=== PATIENT | female | born 1965 | race African-American/Black ===

== ENCOUNTER 2016-05-15 19:44 | Emergency (ER) | payer BC ==
--- NOTE | 2016-05-15 20:11 | ER Document Report ---
HPI - HPI Patient complains to provider of: knee pain Pain Level: 5 Context: 51-year-old female presents emergency Department complaining of left knee pain. Patient states that she's had this pain for about 2 weeks and is over time. Patient states that this pain is worse with movement and is limited her ability to walk. She states she is able to bear weight and walk but with a limp. She feels like the knee is unstable and she is worried about falling sometimes. Patient states that she works for [employer] and she is a lot of pivot motions that are repetitive. Asked medical history significant for diabetes and heel spurs - REPRODUCTIVE Reproductive: DENIES: : - DERM Skin Color: Normal Past Medical History - Social History Smoking Status: Unknown if Ever Smoked Family History: Reviewed & Not Pertinent, Arthritis, CAD, CVA, DM, Hyperlipidemia, Hypertension, Malignancy, Thyroid Disfunction, Other - sarcoidosis - Past Medical History Cardiac Medical History: Reports: Hx Hypertension Pulmonary Medical History: Reports: Hx Asthma Denies: Hx Tuberculosis Endocrine Medical History: Reports: Hx Diabetes Mellitus Type 2 Renal/ Medical History: Denies: Hx Peritoneal Dialysis GI Medical History: Reports: Hx Gastroesophageal Reflux Disease Musculoskeltal Medical History: Reports Hx Arthritis, Reports Hx Musculoskeletal Deformity - carpal tunnel Psychiatric Medical History: Reports: Hx Depression Past Surgical History: Reports: Hx Breast Surgery - reduction, Hx Gynecologic Surgery - d anc c, Hx Hysterectomy - Partial 1996, Hx Oral Surgery - wisdom teeth extraction, Hx Orthopedic Surgery - loren. carpel tunnel surgery, Hx Tonsillectomy. Denies: Hx Pacemaker - Immunizations Immunizations up to date: Yes Hx Diphtheria, Pertussis, Tetanus Vaccination: Yes - past 10 years Hx Pneumococcal Vaccination: 11/17/11 Vertical Provider Document - CONSTITUTIONAL Agree With Documented VS: Yes Exam Limitations: No Limitations General Appearance: WD/WN, No Apparent Distress - INFECTION CONTROL TRAVEL OUTSIDE OF THE [place] IN LAST 30 DAYS: No - RESPIRATORY O2 Sat by Pulse Oximetry: 95 - CARDIOVASCULAR Pulses: Normal: Popliteal, Dorsalis pedis - MUSCULOSKELETAL/EXTREMETIES Musculoskeletal/Extremeties: Non-Tender, No Edema. negative: Eccymosis Notes: Negative posterior, anterior drawer, , valgus varus. Positive apleys with pain in medial aspect of the knee - NEURO Level of Consciousness: Awake, Alert Motor/Sensory: No Motor Deficit, No Sensory Deficit - DERM Integumentary: Warm, Dry, No Rash Course - Re-evaluation Re-evalutation: 05/15/16 20:55 Patient with evidence of internal knee injury. Discussed with patient complained follow-up with the fourth of for proper assessment and diagnosis. She is agreeable stable for discharge home - Vital Signs Vital signs: Temp Pulse Resp BP Pulse Ox 98.9 F 106 H 18 156/100 H 95 05/15/16 19:48 05/15/16 19:48 05/15/16 19:48 05/15/16 19:48 05/15/16 19:48 Discharge - Discharge Clinical Impression: Internal knee problem Condition: Good Disposition: HOME, SELF-CARE Instructions: Use of Crutches ([facility]), Ice & Elevation ([facility]), Suspected Internal Knee Injury ([facility]) Additional Instructions: Please use the crutches to your comfort level to help decrease the amount of pain you are in. Please be sure to follow up with Orthopedics for a knee evaluation Prescriptions: Naproxen 500 mg PO BID #20 tablet Forms: Return to Work Referrals: QUEENIE WINTERS MD [Primary Care Provider] - Follow up as needed SUZANNA GOFF MD [ACTIVE STAFF] - Follow up in 1 week
[2016-05-15] MEDS ORDERED: KETOROLAC TROMETHAMINE 60 MG/2 ML SDV IM ONE (20:34)
[2016-05-15 21:06] VITALS: BP 132/88
== END 2016-05-15 21:15 | disposition home or self-care (01) ==
LOC: ER 19:44
DX: M25.562 Pain in left knee (principal); E11.9 Type 2 diabetes mellitus without complications; I10 Essential (primary) hypertension; J45.909 Unspecified asthma, uncomplicated
CPT/HCPCS: 99283; 96372; J1885

== ENCOUNTER 2016-05-26 18:35 | Emergency (ER) | payer BC ==
[2016-05-26] MEDS ORDERED: IBUPROFEN 800 MG TABLET PO ONE (23:09)
--- NOTE | 2016-05-26 23:09 | ER Document Report ---
ED General - General Chief Complaint: Knee Injury Stated Complaint: LEFT LEG PAIN Notes: Patient is a 51-year-old female who presents with left knee pain has been present for the past 1 week. She came to emergency department as her symptoms have not been improving over this period of time. States that she was diagnosed with a likely ligamentous injury one week ago but has continued to have pain in the knee which she describes as a constant, dull, throbbing pain. Bearing weight worsens the pain. Nothing improves the pain. She has followed up with orthopedic surgery was recommended a knee brace and continue conservative management. She denies any focal weakness or numbness. No leg swelling. TRAVEL OUTSIDE OF THE [place] IN LAST 30 DAYS: No - Related Data Allergies/Adverse Reactions: cephalexin [From Keflex] Allergy (Verified 05/26/16 19:13) Past Medical History - General Information source: Patient - Social History Smoking Status: Never Smoker Frequency of alcohol use: None Drug Abuse: None Lives with: Spouse/Significant other Family History: Reviewed & Not Pertinent, Arthritis, CAD, CVA, DM, Hyperlipidemia, Hypertension, Malignancy, Thyroid Disfunction, Other - Past Medical History Cardiac Medical History: Reports: Hx Hypertension Pulmonary Medical History: Reports: Hx Asthma Denies: Hx Tuberculosis Endocrine Medical History: Reports: Hx Diabetes Mellitus Type 2 Renal/ Medical History: Denies: Hx Peritoneal Dialysis GI Medical History: Reports: Hx Gastroesophageal Reflux Disease Musculoskeltal Medical History: Reports Hx Arthritis, Reports Hx Musculoskeletal Deformity - carpal tunnel Psychiatric Medical History: Reports: Hx Depression Past Surgical History: Reports: Hx Breast Surgery - reduction, Hx Gynecologic Surgery - d anc c, Hx Hysterectomy, Hx Oral Surgery - wisdom teeth extraction, Hx Orthopedic Surgery - loren. carpel tunnel surgery, Hx Tonsillectomy. Denies: Hx Pacemaker - Immunizations Immunizations up to date: Yes Hx Diphtheria, Pertussis, Tetanus Vaccination: Yes - past 10 years Hx Pneumococcal Vaccination: 11/17/11 Review of Systems - Review of Systems Notes: Constitutional: Negative for fever. HENT: Negative for sore throat. Eyes: Negative for visual changes. Cardiovascular: Negative for chest pain. Respiratory: Negative for shortness of breath. Gastrointestinal: Negative for abdominal pain, vomiting or diarrhea. Genitourinary: Negative for dysuria. Musculoskeletal: Positive for left knee pain Skin: Negative for rash. Neurological: Negative for headaches, weakness or numbness. 10 point ROS negative except as marked above and in HPI. Physical Exam - Vital signs Vitals: Temp Pulse Resp BP Pulse Ox 99.3 F 117 H 18 137/75 H 99 05/26/16 19:11 05/26/16 19:11 05/26/16 19:11 05/26/16 19:11 05/26/16 19:11 At the time of my assessment patient was no longer tachycardic with a heart rate of 84. Interpretation: Tachycardic Notes: PHYSICAL EXAMINATION: GENERAL: Well-appearing, well-nourished and in no acute distress. HEAD: Atraumatic, normocephalic. EYES: sclera anicteric, conjunctiva are normal. ENT: Moist mucous membranes. NECK: Normal range of motion LUNGS: Normal work of breathing HEART: 2+ DP pulses bilaterally EXTREMITIES: Mild swelling of the left knee although no swelling of the calf or ankle. Limited flexion secondary to pain although able to complete a full 90 range of motion and full extension. NEUROLOGICAL: No focal neurological deficits. Moves all extremities spontaneously and on command. PSYCH: Normal mood, normal affect. SKIN: Warm, Dry, normal turgor, no rashes or lesions noted. Course - Re-evaluation Re-evalutation: 05/26/16 23:09 No evidence of a septic joint, gout flare, dislocation, or fracture on exam and imaging. Overall history is consistent with an acute ligamentous injury. Vitals wnl. At this time, I do not see an indication for labs or further imaging. Will discharge with conservative measures, return precautions, and follow-up recommendations. - Vital Signs Vital signs: Temp Pulse Resp BP Pulse Ox 99.3 F 117 H 18 137/75 H 99 05/26/16 19:11 05/26/16 19:11 05/26/16 19:11 05/26/16 19:11 05/26/16 19:11 Discharge - Discharge Clinical Impression: Left knee pain Qualifiers: Chronicity: acute Qualified Code(s): M25.562 - Pain in left knee Condition: Good Disposition: HOME, SELF-CARE Additional Instructions: Your x-ray does not show any acute fracture today. You likely have a ligamentous strain. You should continue to take anti-inflammatories such as ibuprofen 600 mg every 6 hours. Continue to apply ice to the area is much your able. Your symptoms can take 6-12 weeks to fully resolve and can take potentially longer if you have more complicated ligamentous injury. Please return immediately if you develop weakness, numbness, spreading redness from the area, or any other symptoms that are concerning to you. Prescriptions: Ibuprofen 800 mg PO BID #60 tablet Referrals: QUEENIE WINTERS MD [Primary Care Provider] - Follow up as needed
[2016-05-27 05:08] VITALS: BP 146/92
== END 2016-05-26 23:30 | disposition home or self-care (01) ==
LOC: ER 18:35
DX: S89.92XA Unspecified injury of left lower leg, initial encounter (principal); M25.562 Pain in left knee; X58.XXXA Exposure to other specified factors, initial encounter
CPT/HCPCS: 99283

== ENCOUNTER → 2016-06-07 | Outpatient (CLI) | payer BC | LOC: WI 14:02 | PROVIDERS: ATTEND Internal Medicine | DX: Z12.31 Encounter for screening mammogram for malignant neoplasm of breast (principal) | CPT/HCPCS: 77067; G0202 ==

== ENCOUNTER 2016-07-12 17:35 | Emergency (ER) | payer OTHER, BC ==
[2016-07-12 17:44] VITALS: BP 138/91
--- NOTE | 2016-07-12 19:06 | ER Document Report ---
ED Burn/Smoke/Toxic Fumes - General Chief Complaint: Burn Stated Complaint: HAND INJURY/BURN Time Seen by Provider: 07/12/16 18:27 Mode of Arrival: Ambulatory Information source: Patient Notes: 1-year-old female presents to ED for a burn to her left hand at work. She states she was picking up a couple coffee when the lid popped off in the coffee spilled on her hand and arm. She is very concerned because she is diabetic. TRAVEL OUTSIDE OF THE [place] IN LAST 30 DAYS: No - HPI Patient complains to provider of: Burn Onset: This afternoon Where: Work Quality of pain: Burning Severity: Moderate Pain Level: 3 Associated Symptoms: None Other injuries: Hand - Hand index finger - Related Data Allergies/Adverse Reactions: cephalexin [From Keflex] Allergy (Verified 05/26/16 19:13) Past Medical History - General Information source: Patient - Social History Smoking Status: Never Smoker Cigarette use (# per day): No Chew tobacco use (# tins/day): No Smoking Education Provided: No Frequency of alcohol use: None Drug Abuse: None Occupation: [employer] Lives with: Alone Family History: Arthritis, CAD, CVA, DM, Hyperlipidemia, Hypertension, Malignancy, Thyroid Disfunction - Past Medical History Cardiac Medical History: Reports: Hx Hypertension Pulmonary Medical History: Reports: Hx Asthma, Hx Sleep Apnea EENT Medical History: Reports: None Neurological Medical History: Reports: None Endocrine Medical History: Reports: Hx Diabetes Mellitus Type 2 Renal/ Medical History: Reports: Hx Ovarian Cysts Malignancy Medical History: Reports: None GI Medical History: Reports: Hx Gastroesophageal Reflux Disease, Hx Ulcer Musculoskeltal Medical History: Reports Hx Arthritis, Reports Hx Musculoskeletal Deformity - carpal tunnel, Reports Hx Musculoskeletal Trauma Skin Medical History: Reports Hx Eczema Psychiatric Medical History: Reports: Hx Depression, Hx Post Traumatic Stress Disorder Traumatic Medical History: Reports: None Infectious Medical History: Reports: None Past Surgical History: Reports: Hx Adenoidectomy, Hx Breast Surgery - reduction , Hx Dilation and Curettage, Hx Hysterectomy, Hx Oral Surgery - wisdom teeth extraction, Hx Orthopedic Surgery - loren. carpel tunnel surgery, Hx Tonsillectomy - Immunizations Immunizations up to date: Yes Hx Diphtheria, Pertussis, Tetanus Vaccination: Yes - past 10 years Hx Pneumococcal Vaccination: 11/17/11 Review of Systems - Review of Systems Constitutional: No symptoms reported EENT: No symptoms reported Cardiovascular: No symptoms reported Respiratory: No symptoms reported Gastrointestinal: No symptoms reported Genitourinary: No symptoms reported Female Genitourinary: No symptoms reported Musculoskeletal: No symptoms reported Skin: Other - burn to left hand index finger Hematologic/Lymphatic: No symptoms reported Neurological/Psychological: No symptoms reported -: Yes All other systems reviewed and negative Physical Exam - Vital signs Vitals: Temp Pulse Resp BP Pulse Ox 98.3 F 106 H 16 138/91 H 100 07/12/16 17:42 07/12/16 17:42 07/12/16 17:42 07/12/16 17:42 07/12/16 17:42 Interpretation: Normal - General General appearance: Appears well, Alert - HEENT Head: Normocephalic, Atraumatic Eyes: Normal Pupils: PERRL - Respiratory Respiratory status: No respiratory distress Chest status: Nontender Breath sounds: Normal Chest palpation: Normal - Cardiovascular Rhythm: Regular Heart sounds: Normal auscultation Murmur: No - Abdominal Inspection: Normal Distension: No distension Bowel sounds: Normal Tenderness: Nontender Organomegaly: No organomegaly - Back Back: Normal, Nontender - Extremities General upper extremity: Normal inspection, Nontender, Normal color, Normal ROM , Normal temperature General lower extremity: Normal inspection, Nontender, Normal color, Normal ROM , Normal temperature, Normal weight bearing. No: Nacho's sign Hand: Tender, No evidence of human bite, No evidence of FB, Other - No signs of mijares noted at this time left hand index finger or arm. Both hands are the same color no blisters noted. Patient is tender to the thumb side of the index finger on left hand - Neurological Neuro grossly intact: Yes Cognition: Normal Orientation: AAOx4 Radha Coma Scale Eye Opening: Spontaneous [place] Coma Scale Verbal: Oriented Radha Coma Scale Motor: Obeys Commands Radha Coma Scale Total: 15 Speech: Normal Motor strength normal: LUE, RUE, LLE, RLE Sensory: Normal - Psychological Associated symptoms: Normal affect, Normal mood - Skin Skin Temperature: Warm Skin Moisture: Dry Skin Color: Normal Course - Vital Signs Vital signs: Temp Pulse Resp BP Pulse Ox 98.3 F 106 H 16 138/91 H 100 07/12/16 17:42 07/12/16 17:42 07/12/16 17:42 07/12/16 17:42 07/12/16 17:42 Discharge - Discharge Clinical Impression: Superficial burn of left index finger Condition: Stable Disposition: HOME, SELF-CARE Additional Instructions: Mijares The seriousness of a burn is not always obvious at first. Delayed tissue damage and secondary infection may occur despite proper treatment. Proper care is very important. A burn that is third-degree may need skin grafting. Most mijares, however, are simply protected with dressings until healed. Keep the burn clean. If the dressing gets wet, remove it and blot the wound dry, then apply a fresh dressing. Dressings should be changed at least once daily. Soaks to remove crusting are usually started in about two days. Mijares in certain areas require stretching to prevent disabling tightness. Your doctor will advise you about this. For pain control, you may frequently apply a hand towel that has been dipped in water with ice cubes. Do not apply ice directly to the burned areas. If any signs of infection occur (swelling, redness, increasing tenderness, red streaks, tender lumps in the armpit or groin above the burn, or fever), contact the doctor immediately. Antibiotic Ointment Protection Your wounds are such that dressing them is not practical or optional. After cleansing, you should apply a thin coating of antibiotic ointment ( Bacitracin, not Neosporin) to the wounds at least three times daily. This lessens infection risk, and may decrease the amount of scarring. Use a q-tip or dull butter knife, not your finger, to apply this ointment. Any debris or ooze which builds up in the ointment should be gently rubbed off with a sterile gauze pad. Harder crusting may need to be gently scrubbed off with a clean wash cloth with soap and warm water, perhaps applying a warm, wet wash cloth to the wound for ten minutes first. Development of redness, severe itching, or blistering may mean allergy to the ointment. See the doctor. Acetaminophen Acetaminophen may be taken for pain relief or fever control. It's much safer than aspirin, offering a wider range of "safe" dosages. It is safe during . Some brand names are Tylenol, Panadol, Datril, Anacin 3, Tempra, and Liquiprin. Acetaminophen can be repeated every four hours. The following are maximum recommended dosages: WEIGHT Dose Drops Elixir Chewable( 80mg) (LBS.) drprs=droppers tsp=teaspoon 6 40 mg .4 ml (1/2) 6-11 80 mg .8 ml (full) 1/2 tsp 1 tab 12-16 120 mg 1 1/2 drprs 3/4 tsp 1 1/2 tabs 17-23 160 mg 2 drprs 1 tsp 2 tabs 24-30 240 mg 3 drprs 1 1/2 tsp 3 tabs 30-35 320 mg 2 tsp 4 tabs 36-41 360 mg 2 1/4 tsp 4 1 /2 tabs 42-47 400 mg 2 1/2 tsp 5 tabs 48-53 480 mg 3 tsp 6 tabs 54-59 520 mg 3 1/4 tsp 6 1 /2 tabs 60-64 560 mg 3 1/2 tsp 7 tabs 65-70 600 mg 3 3/4 tsp 7 1 /2 tabs 71-76 640 mg 4 tsp 8 tabs 77-82 720 mg 4 1/2 tsp 9 tabs 83-88 800 mg 5 tsp 10 tabs >89 pounds or adults 650 mg to 900 mg Acetaminophen can be repeated every four hours. Maximum daily dose not to exceed 4000 mg. These maximum recommended dosages are slightly higher than the dosages written on the product container, but these dosages are very safe and well below the toxic dosage for acetaminophen. FOLLOW-UP CARE: If you have been referred to a physician for follow-up care, call the physician s office for an appointment as you were instructed or within the next two days. If you experience worsening or a significant change in your symptoms, notify the physician immediately or return to the Emergency Department at any time for re-evaluation. Forms: Elevated Blood Pressure, Return to Work Referrals: QUEENIE WINTERS MD [Primary Care Provider] - Follow up as needed
== END 2016-07-12 19:56 | disposition home or self-care (01) ==
LOC: ER 17:35
DX: T23.002A Burn of unspecified degree of left hand, unspecified site, initial encounter (principal)
CPT/HCPCS: 99283

== ENCOUNTER → 2016-07-29 | Outpatient (CLI) | payer BC ==
--- NOTE | 2016-07-30 12:54 | RADIOLOGY REPORT (SQ) ---
EXAM DESCRIPTION: MRI LT LOWER JOINT WITHOUT COMPLETED DATE/TIME: 07/29/2016 6:15 pm REASON FOR STUDY: PAIN IN LEFT KNEE M25.562 PAIN IN LEFT KNEE COMPARISON: Plain radiographs TECHNIQUE: Leftknee images acquired and stored on PACS. Multiplanar images include fat sensitive se quences as T1, water sensitive sequences as FST2 or STIR, cartilage sensitive sequences as FSPD, and gradient echo sequences. LIMITATIONS: None. FINDINGS: JOINT AND BURSAE: Large joint effusion. No popliteal cyst. BONE CORTEX AND MARROW: No alteration of signal to suggest marrow replacement. No worrisome bone lesi ons. No occult fracture. ACL: Intact. No degeneration or ganglion cyst. PCL: Intact. MCL: Intact. No periligamentous edema or fluid. LCL: Intact. No periligamentous edema or fluid. MEDIAL MENISCUS: Combination vertical radial and flap tear posterior horn of the medial meniscus. LATERAL MENISCUS: No tears. No abnormal signal. MEDIAL COMPARTMENT: Mild cartilaginous loss along the medial femoral condyle weight-bearing surface. Mild reactive edema. LATERAL COMPARTMENT: Cartilage preserved. No bone bruises or reactive marrow edema. No osteophytes. PATELLA: early patella chondromalacia medial facet. Trochlear cartilage intact. Retinacular intact. EXTENSOR MECHANISM: Intact. Quadriceps and patella tendons normal. Soft tissue swelling of the super ior olivares. . SOFT TISSUES: Adjacent muscles and subcutaneous tissues normal. Normal flow void in popliteal artery and vein. OTHER: No other significant finding. IMPRESSION: Vertical radial extending to flap tear posterior horn of the medial meniscus Large joint effusion without popliteal cyst. Early degenerative changes of the medial compartment. TECHNICAL DOCUMENTATION: JOB ID: [id number] [employer] All Rights Reserved
== END ==
LOC: RAD 17:05
PROVIDERS: ATTEND Orthopaedic Surgery
DX: M25.562 Pain in left knee (principal); S83.242A Other tear of medial meniscus, current injury, left knee, initial encounter

== ENCOUNTER 2017-04-22 02:07 | Emergency (ER) | payer BC ==
[2017-04-22 02:20] VITALS: BP 124/72
--- NOTE | 2017-04-22 03:35 | RADIOLOGY REPORT (SQ) ---
EXAM DESCRIPTION: KNEE RIGHT 4 VIEWS CLINICAL HISTORY: knee pain COMPARISON: None. FINDINGS: 4 views of the right knee. No acute fracture or dislocation. Normal osseous mineralization. No definite joint effusion. IMPRESSION: No acute fracture or dislocation.
[2017-04-22] MEDS ORDERED: OXYCODONE-ACETAMINOPHEN 5-325 MG TABLET PO ONE (04:06)
--- NOTE | 2017-04-22 04:14 | ER Document Report ---
HPI - HPI Patient complains to provider of: right knee Pain Level: 4 Context: Patient is a 52-year-old female that comes emergency department for chief complaint of right knee pain. She states that she was getting out of a recliner when she stepped awkwardly on the knee and felt sharp pain in it. She states now it is hard to walk on it. She is unsure of swelling. She states she has been recently babying her left knee and now she thinks her right knee is hurting as a result. She already has an orthopedic surgeon and she has actually scheduled for meniscal repair on the left knee within the next few weeks. She denies any fall or impact injury, she denies any other locations of pain. - EENT EENT: DENIES: Sore Throat, Ear Pain, Eye problems - NEURO Neurology: DENIES: Headache, Weakness, Vision blurred, Dizzinesss / Vertigo - CARDIOVASCULAR Cardiovascular: DENIES: Chest pain - RESPIRATORY Respiratory: DENIES: Trouble Breathing, Coughing - GASTROINTESTINAL Gastrointestinal: DENIES: Abdominal Pain, Black / Bloody Stools - URINARY Urinary: DENIES: Dysuria, Urgency, Frequency - REPRODUCTIVE Reproductive: DENIES: : - MUSCULOSKELETAL Musculoskeletal: REPORTS: Extremity pain - r knee Past Medical History - General Information source: Patient - Social History Smoking Status: Never Smoker Frequency of alcohol use: None Drug Abuse: None Lives with: Family Family History: Arthritis, CAD, CVA, DM, Hyperlipidemia, Hypertension, Malignancy, Thyroid Disfunction Patient has suicidal ideation: No Patient has homicidal ideation: No - Past Medical History Cardiac Medical History: Reports: Hx Hypertension Pulmonary Medical History: Reports: Hx Asthma, Hx Sleep Apnea Endocrine Medical History: Reports: Hx Diabetes Mellitus Type 2 Renal/ Medical History: Reports: Hx Ovarian Cysts. Denies: Hx Peritoneal Dialysis GI Medical History: Reports: Hx Gastroesophageal Reflux Disease, Hx Ulcer Musculoskeltal Medical History: Reports Hx Arthritis, Reports Hx Musculoskeletal Deformity - carpal tunnel, Reports Hx Musculoskeletal Trauma Skin Medical History: Reports Hx Eczema Psychiatric Medical History: Reports: Hx Depression, Hx Post Traumatic Stress Disorder Past Surgical History: Reports: Hx Adenoidectomy, Hx Breast Surgery - reduction , Hx Dilation and Curettage, Hx Gynecologic Surgery - d anc c, Hx Hysterectomy, Hx Oral Surgery - wisdom teeth extraction, Hx Orthopedic Surgery - loren. carpel tunnel surgery, Hx Tonsillectomy - Immunizations Immunizations up to date: Yes Hx Diphtheria, Pertussis, Tetanus Vaccination: Yes - past 10 years Hx Pneumococcal Vaccination: 11/17/11 Vertical Provider Document - CONSTITUTIONAL General Appearance: WD/WN, No Apparent Distress, Obese - INFECTION CONTROL TRAVEL OUTSIDE OF THE [place] IN LAST 30 DAYS: No - HEENT HEENT: Atraumatic, Normocephalic - RESPIRATORY Respiratory: Breath Sounds Normal, No Respiratory Distress O2 Sat by Pulse Oximetry: 97 - CARDIOVASCULAR Cardiovascular: Regular Rate, Regular Rhythm - GI/ABDOMEN Gastrointestinal: Abdomen Soft, Abdomen Non-Tender - BACK Back: Normal Inspection - MUSCULOSKELETAL/EXTREMETIES Musculoskeletal/Extremeties: Tender - Tender along the right knee over the medial aspect of the knee, no effusion, range of motion intact although pain with range of motion is noted. Unremarkable calf, hip, ankle, lower extremity exam otherwise. Normal distal neurovascular exam. - NEURO Level of Consciousness: Awake, Alert, Appropriate Motor/Sensory: No Motor Deficit, No Sensory Deficit Course - Re-evaluation Re-evalutation: Exam suggestive of sprain, no loss range of motion, abnormal heat, severe pain, evidence of compartment syndrome. Pain with walking on the knee. Unremarkable lower extremity exam otherwise. X-ray unremarkable as well. Patient has excellent orthopedic follow-up already. Provided with crutches, she declined Rupert wrap, knee immobilizer. Discussed follow-up and return precautions. Patient states understanding and agreement. - Vital Signs Vital signs: Temp Pulse Resp BP Pulse Ox 99.1 F 95 20 124/72 97 04/22/17 02:19 04/22/17 02:19 04/22/17 02:19 04/22/17 02:19 04/22/17 02:19 Discharge - Discharge Clinical Impression: Right knee pain Qualifiers: Chronicity: acute Qualified Code(s): M25.561 - Pain in right knee Condition: Stable Disposition: HOME, SELF-CARE Additional Instructions: The imaging of your knee does not show fracture, does not show fluid in the joint, does not show any obvious abnormality. However the x-ray can miss injuries to the ligaments or additional internal injuries of the knee. Recommendation is to ice your knee, elevate your knee, use the crutches to stay off the knee for the next 2-3 days, take your prescribed medications, and follow -up closely with orthopedics for additional evaluation and management. Return to the emergency department for any concerning or worsening symptoms including severe pain or swelling, redness of the knee, fever, or any other concerning symptoms. Prescriptions: Naproxen [Naprosyn 250 mg Tablet] 250 mg PO BID #10 tablet Forms: Return to Work
== END 2017-04-22 04:30 | disposition home or self-care (01) ==
LOC: ER 02:07
DX: M25.561 Pain in right knee (principal); I10 Essential (primary) hypertension; E11.9 Type 2 diabetes mellitus without complications; Z90.710 Acquired absence of both cervix and uterus
CPT/HCPCS: 99283

== ENCOUNTER → 2017-04-25 | Outpatient (CLI) | payer BC ==
--- NOTE | 2017-04-25 19:49 | RADIOLOGY REPORT (SQ) ---
EXAM DESCRIPTION: MRI RT LOWER JOINT WITHOUT COMPLETED DATE/TIME: 04/25/2017 5:09 pm REASON FOR STUDY: PAIN IN R KNEE M25.561 PAIN IN RIGHT KNEE COMPARISON: 04/22/2017. TECHNIQUE: Rightknee images acquired and stored on PACS. Multiplanar images include fat sensitive s equences as T1, water sensitive sequences as FST2 or STIR, cartilage sensitive sequences as FSPD, and gradient echo sequences. LIMITATIONS: None. FINDINGS: JOINT AND BURSAE: Relatively small joint effusion. No loose bodies appreciated. BONE CORTEX AND MARROW: No alteration of signal to suggest marrow replacement. No worrisome bone lesi ons. No occult fracture. ACL: Signal in the ACL, either degenerative or related to low grade sprain. Major fiber bundles are intact, however. PCL: Intact. MCL: Intact. LCL: Intact. MEDIAL MENISCUS: Tear in the posterior meniscus root. Extruded appearance of the meniscus with abnor mal horizontal signal throughout the posterior horn some of which appears to extend to the inferior a rticular surface. LATERAL MENISCUS: Mild signal in the anterior root, isolated. Doubtful clinical significance. MEDIAL COMPARTMENT: No focal chondral lesions or reactive bone changes. LATERAL COMPARTMENT: No focal chondral lesions or reactive bone changes. PATELLA: Normal location. No cartilage loss detected. EXTENSOR MECHANISM: Intact. Quadriceps and patella tendons normal. SOFT TISSUES: Adjacent muscles and subcutaneous tissues normal. Normal flow void in popliteal artery and vein. OTHER: No other significant finding. IMPRESSION: 1. Medial meniscus tear. 2. Other findings as above. Suspect low grade sprain versus degenerative signal in the ACL. Major fiber bundles are intact. TECHNICAL DOCUMENTATION: JOB ID: [id number] [employer]- All Rights Reserved Reading location - IP/workstation name: [email or web address]
== END ==
LOC: RAD 15:13
PROVIDERS: ATTEND Internal Medicine
DX: M25.561 Pain in right knee (principal)

== ENCOUNTER → 2017-10-25 | Outpatient (CLI) | payer BC ==
--- NOTE | 2017-10-25 15:02 | WOMENS IMAGING REPORT ---
EXAM DESCRIPTION: BILAT SCREENING MAMMO W/CAD COMPLETED DATE/TIME: 10/25/2017 11:18 am REASON FOR STUDY: ROUTINE SCREENING Z12.31 Z12.31 ENCNTR SCREEN MAMMOGRAM FOR MALIGNANT NEOPLASM OF [place]O COMPARISON: 2009 TECHNIQUE: Standard craniocaudal and mediolateral oblique views of each breast recorded using [employer] acquisition. LIMITATIONS: None. FINDINGS: Findings present which are benign by mammographic criteria. No suspicious masses, calcifi cations or architectural distortion. Pertinent benign findings: Bilateral skin calcifications. Read with the assistance of CAD. .[facility] - R2 Cenova Version 1.3 .[facility] - R2 Cenova Version 1.3 .[facility] - R2 Cenova Version 2.4 .[facility] [place] - R2 Cenova Version 2.4 .[facility] - R2 [employer] Cart[employer] Painter Version 9.2 Benign mammographic findings may include one or more of the following: Smooth masses, popcorn/rim/co arse calcifications, asymmetries, post-procedure changes, and lesions with long-standing stability. IMPRESSION: BENIGN MAMMOGRAPHIC FINDINGS. BIRADS 2 BREAST DENSITY: b. There are scattered areas of fibroglandular density. BIRAD: 2 BENIGN FINDING(S) RECOMMENDATION: ROUTINE SCREENING Please continue yearly bilateral screening mammography/tomosynthesis in October 2018 COMMENT: The patient has been notified of the results by letter per [place] requirements. Additional no tification policies are in place for contacting patient with suspicious or incomplete findings. Quality ID #[id number]: The [employer] recommends an annual screening mammogram for women aged 40 years or over. This facility utilizes a reminder system to ensure that all patients receive reminder letters, and/or direct phone calls for appointments. This includes reminders for routine scr eening mammograms, diagnostic mammograms, or other Breast Imaging Interventions when appropriate. Th is patient will be placed in the appropriate reminder system. The [employer] (ACR) has developed recommendations for screening MRI of the breast s in certain patient populations, to be used in conjunction with mammography. Breast MRI surveillanc e may be appropriate for women with more than 20% lifetime risk of developing breast cancer as deter mined by genetic testing, significant family history of the disease, or history of mantle radiation f or Hodgkins Disease. ACR Practice Guidelines 2008. TECHNICAL DOCUMENTATION: FINDING NUMBER: (1) ASSESSMENT: (1) JOB ID: [id number] [employer]- All Rights Reserved Reading location - IP/workstation name: [email or web address]
== END ==
LOC: WI 11:01
PROVIDERS: ATTEND Internal Medicine
DX: Z12.31 Encounter for screening mammogram for malignant neoplasm of breast (principal)
CPT/HCPCS: 77067

== ENCOUNTER 2018-07-17 00:27 | Emergency (ER) | payer SELFPAY ==
--- NOTE | 2018-07-17 03:35 | ER Document Report ---
ED Medical Screen (RME) - General Chief Complaint: Insect Bite Stated Complaint: POSSIBLE SPIDER BITE Time Seen by Provider: 07/17/18 03:32 Primary Care Provider: QUEENIE WINTERS MD [Primary Care Provider] - Follow up as needed Mode of Arrival: Ambulatory Information source: Patient Notes: Patient is a 53-year-old female with complaint of possible spider bite to her abdomen. She reports she first noticed this approximately 2 to 3 days ago and it has gotten worse since. Patient reports increased swelling and pain. Patient reports very scant amount of drainage. Patient did see a spider in the vicinity but did not see it bite her. Exam: Erythema with induration noted to patient's abdomen lateral to the umbilical area on the left side. No obvious fluctuance on palpation. I have greeted and performed a rapid initial assessment of this patient. A comprehensive ED assessment and evaluation of the patient, analysis of test results and completion of the medical decision making process will be conducted by additional ED providers. Dictation of this chart was performed using voice recognition software; therefore, there may be some unintended grammatical errors. TRAVEL OUTSIDE OF THE [place] IN LAST 30 DAYS: No - Related Data Allergies/Adverse Reactions: cephalexin [From Keflex] Allergy (Verified 05/26/16 19:13) Past Medical History - Past Medical History Cardiac Medical History: Reports: Hx Hypertension Pulmonary Medical History: Reports: Hx Asthma, Hx Sleep Apnea Endocrine Medical History: Reports: Hx Diabetes Mellitus Type 2 Renal/ Medical History: Reports: Hx Ovarian Cysts. Denies: Hx Peritoneal Dialysis GI Medical History: Reports: Hx Gastroesophageal Reflux Disease, Hx Ulcer Musculoskeltal Medical History: Reports Hx Arthritis, Reports Hx Musculoskeletal Deformity - carpal tunnel, Reports Hx Musculoskeletal Trauma Skin Medical History: Reports Hx Eczema Psychiatric Medical History: Reports: Hx Depression, Hx Post Traumatic Stress Disorder Past Surgical History: Reports: Hx Adenoidectomy, Hx Breast Surgery - reduction, Hx Dilation and Curettage, Hx Gynecologic Surgery - d anc c, Hx Hysterectomy, Hx Oral Surgery - wisdom teeth extraction, Hx Orthopedic Surgery - loren. carpel tunnel surgery, Hx Tonsillectomy - Immunizations Immunizations up to date: Yes Hx Diphtheria, Pertussis, Tetanus Vaccination: Yes - past 10 years Physical Exam - Vital signs Vitals: Temp Pulse Resp BP Pulse Ox 98.7 F 97 20 125/77 95 07/17/18 00:51 07/17/18 00:51 07/17/18 00:51 07/17/18 00:51 07/17/18 00:51 Course - Vital Signs Vital signs: Temp Pulse Resp BP Pulse Ox 98.7 F 97 20 125/77 95 07/17/18 00:51 07/17/18 00:51 07/17/18 00:51 07/17/18 00:51 07/17/18 00:51 Doctor's Discharge - Discharge Referrals: QUEENIE WINTERS MD [Primary Care Provider] - Follow up as needed
--- NOTE | 2018-07-17 04:48 | RADIOLOGY REPORT (SQ) ---
EXAM DESCRIPTION: US ABDOMEN LIMITED COMPLETED DATE/TME: 07/17/2018 03:33 CLINICAL HISTORY: 53 years, Female, eval for abscess left abdomen COMPARISON: None. TECHNIQUE: Transverse and longitudinal sonographic images of the superficial soft tissues of the left abdominal region in the region of the patient's clinical/palpable abnormality LIMITATIONS: None. FINDINGS: Complex 1.5 x 1.0 x 1.5 cm fluid collection likely reflects small abscess. IMPRESSION: Suspected tiny abscess as above copyright 2010 [employer]- All Rights Reserved
--- NOTE | 2018-07-17 07:38 | ER Document Report ---
HPI - HPI Time Seen by Provider: 07/17/18 03:32 Pain Level: 4 Notes: Patient is a 53-year-old female with complaint of possible spider bite to her abdomen. She reports she first noticed this approximately 2 to 3 days ago and it has gotten worse since. Patient reports increased swelling and pain. Patient reports very scant amount of drainage. Patient did see a spider in the vicinity but did not see it bite her. - REPRODUCTIVE Reproductive: DENIES: : - DERM Skin Color: Normal Past Medical History - General Information source: Patient - Social History Smoking Status: Former Smoker Frequency of alcohol use: Rare Drug Abuse: None Family History: Arthritis, CAD, CVA, DM, Hyperlipidemia, Hypertension, Malignancy, Thyroid Disfunction Patient has suicidal ideation: No Patient has homicidal ideation: No - Past Medical History Cardiac Medical History: Reports: Hx Hypertension Pulmonary Medical History: Reports: Hx Asthma, Hx Sleep Apnea Endocrine Medical History: Reports: Hx Diabetes Mellitus Type 2 Renal/ Medical History: Reports: Hx Ovarian Cysts. Denies: Hx Peritoneal Dialysis GI Medical History: Reports: Hx Gastroesophageal Reflux Disease, Hx Ulcer - abd (resolved) Musculoskeletal Medical History: Reports Hx Arthritis, Reports Hx Musculoskeletal Deformity - carpal tunnel, Reports Hx Musculoskeletal Trauma Skin Medical History: Reports Hx Eczema Psychiatric Medical History: Reports: Hx Depression, Hx Post Traumatic Stress Disorder Past Surgical History: Reports: Hx Adenoidectomy, Hx Breast Surgery - reduction, Hx Dilation and Curettage, Hx Gynecologic Surgery - d anc c, Hx Hysterectomy, Hx Oral Surgery - wisdom teeth extraction, Hx Orthopedic Surgery - loren. carpel tunnel surgery, Hx Tonsillectomy - Immunizations Immunizations up to date: Yes Hx Diphtheria, Pertussis, Tetanus Vaccination: Yes - past 10 years Hx Pneumococcal Vaccination: 11/17/11 Vertical Provider Document - CONSTITUTIONAL Notes: PHYSICAL EXAMINATION: GENERAL: Well-appearing, well-nourished and in no acute distress. HEAD: Atraumatic, normocephalic. EYES: Pupils equal round extraocular movements intact, conjunctiva are normal. ENT: Nares patent NECK: Normal range of motion LUNGS: No respiratory distress Musculoskeletal: Normal range of motion NEUROLOGICAL: Normal speech, normal gait. PSYCH: Normal mood, normal affect. SKIN: Erythema with area of induration and small amount of fluctuance noted. - INFECTION CONTROL TRAVEL OUTSIDE OF THE [place] IN LAST 30 DAYS: No Course - Re-evaluation Re-evalutation: Vital signs are within normal limits. Patient appears well other than the area of erythema with induration and fluctuance noted to the left side of her abdomen. An ultrasound was performed to evaluate the exact location of the potential abscess. The ultrasound does show a small fluid collection. I will perform an incision and drainage on this area. Patient tolerated incision and drainage well. A small amount of purulent drainage was obtained. Patient encouraged to watch this area closely. Surgical marking was placed. Patient placed on antibiotics and discharged home. - Vital Signs Vital signs: Temp Pulse Resp BP Pulse Ox 98.7 F 97 20 125/77 95 07/17/18 00:51 07/17/18 00:51 07/17/18 00:51 07/17/18 00:51 07/17/18 00:51 Procedures - Incision and Drainage Abdomen Type: Simple Anesthetic type: 1% Lidocaine Blade size: 11 Incision Method: Incision made by scalpel Discharge - Discharge Clinical Impression: Abscess Cellulitis Qualifiers: Site of cellulitis: unspecified site Qualified Code(s): L03.90 - Cellulitis, unspecified Condition: Stable Disposition: HOME, SELF-CARE Additional Instructions: The rash is likely due to infection of your skin. You need to take the antibiotics as prescribed. Do not stop even if the rash goes away until you have completed all the antibiotics. The area of redness was traced out here in the emergency department with a marking pen. You need to return to emergency department if the redness spreads outside of this area by more than 2 cm in any direction. You should also return if you develop fevers with temperature greater than 101, persistent vomiting, worsening pain, or have any other symptoms that are concerning to you. You were seen for an abscess that required drainage. Please clean this area with soap and water twice daily and apply a topical antibiotic. Dress the area after each cleaning. Apply warm compress to the area 3-4 times daily. Please return if you develop fever, vomiting, the pain at the site worsens, you notice spreading redness from the area, or you have any other symptoms that are concerning to you. Prescriptions: Doxycycline Hyclate 100 mg PO BID #14 capsule Forms: Return to Work Referrals: QUEENIE WINTERS MD [Primary Care Provider] - Follow up as needed
[2018-07-17 07:52] VITALS: BP 119/78
== END 2018-07-17 08:00 | disposition home or self-care (01) ==
LOC: ER 00:27
DX: L02.91 Cutaneous abscess, unspecified (principal); L03.90 Cellulitis, unspecified; E11.9 Type 2 diabetes mellitus without complications; I10 Essential (primary) hypertension; J45.909 Unspecified asthma, uncomplicated; Z87.891 Personal history of nicotine dependence
CPT/HCPCS: 76705; 99283

== ENCOUNTER → 2019-12-05 | Outpatient (CLI) | payer BC ==
--- NOTE | 2019-12-06 14:45 | WOMENS IMAGING REPORT ---
EXAM DESCRIPTION: 3D SCREENING MAMMO BILAT IMAGES COMPLETED DATE/TIME: 12/05/2019 1:50 pm REASON FOR STUDY: Z12.31 ENCOUNTER FOR SCREENING MAMMOGRAM FOR MALIGNANT NEOPLASM OF BREAST Z12.31 ENCNTR SCREEN MAMMOGRAM FOR MALIGNANT NEOPLASM OF [place]O COMPARISON: 2017, 2017 EXAM PARAMETERS: Views: Standard craniocaudal and mediolateral oblique views of each breast recorded using digital acquisition and breast tomosynthesis. Read with the assistance of CAD. .[facility] - [employer] Version 9.2 LIMITATIONS: None. FINDINGS: No suspicious masses, suspicious calcifications or architectural distortion. No areas of c oncern. IMPRESSION: NEGATIVE MAMMOGRAM. BIRADS 1. BREAST DENSITY: a. The breasts are almost entirely fatty. BIRAD: ASSESSMENT: 1 NEGATIVE RECOMMENDATION: ROUTINE SCREENING Please continue yearly bilateral screening mammography/tomosynthesis in November 2020 COMMENT: The patient has been notified of the results by letter per MQSA requirements. Additional no tification policies are in place for contacting patient with suspicious or incomplete findings. Quality ID #[id number]: The [employer] recommends an annual screening mammogram for women aged 40 years or over. This facility utilizes a reminder system to ensure that all patients receive reminder letters, and/or direct phone calls for appointments. This includes reminders for routine scr eening mammograms, diagnostic mammograms, or other Breast Imaging Interventions when appropriate. Th is patient will be placed in the appropriate reminder system. TECHNICAL DOCUMENTATION: FINDING NUMBER: (1) ASSESSMENT: (1) JOB ID: [id number] [employer] All Rights Reserved Reading location - IP/workstation name: [email or web address]
== END ==
LOC: WI 13:57
PROVIDERS: ATTEND Internal Medicine
DX: Z12.31 Encounter for screening mammogram for malignant neoplasm of breast (principal)
CPT/HCPCS: 77063; 77067